=== PATIENT | male | born 1940 | race American Indian/Alaskan Native ===

== ENCOUNTER 2017-06-11 19:29 | Emergency (ER) | payer MEDICARE ==
[2017-06-11 19:44] VITALS: BP 110/69
[2017-06-11] MEDS ORDERED: DELTASONE PO ONE (22:28)
[2017-06-11] MEDS ORDERED: BENADRYL PO ONE (22:28)
[2017-06-11] MEDS ORDERED: PEPCID PO ONE (22:28)
--- NOTE | 2017-06-11 22:51 | Emergency Department Report ---
ED Rash HPI - HPI Chief Complaint: Skin Rash Stated Complaint: LT EYE SWELLING/ITCHING Time Seen by Provider: 06/11/17 22:26 Duration: 2 Days Location: Lower Extremities Suspected Cause: Medication (atrovastatin ) Rash Symptoms: Yes Itching, No Facial Swelling, No Tongue/Oral Swelling, No Breathing Difficulties, No Choking Sensation, No Wheezing/Dyspnea, No Peeling, No Blistering, No Fever, No Lightheaded, No Malaise, No Myalgias Severity: moderate ED Review of Systems ROS: Stated complaint: LT EYE SWELLING/ITCHING Other details as noted in HPI Constitutional: denies: chills, fever Eyes: denies: eye pain, eye discharge, vision change ENT: denies: ear pain, throat pain Respiratory: denies: cough, shortness of breath, wheezing Cardiovascular: denies: chest pain, palpitations Endocrine: no symptoms reported Gastrointestinal: denies: abdominal pain, nausea, diarrhea Genitourinary: denies: urgency, dysuria Musculoskeletal: denies: back pain, joint swelling, arthralgia Skin: rash, other (hives bilat le back ). denies: lesions Neurological: denies: headache, weakness, paresthesias Psychiatric: denies: anxiety, depression Hematological/Lymphatic: denies: easy bleeding, easy bruising ED Past Medical Hx - Past Medical History Additional medical history: elevated cholesterol - Surgical History Additional Surgical History: left knee - Social History Smoking Status: Never Smoker Substance Use Type: None - Medications Home Medications: Home Medications Medication Instructions Recorded Confirmed Last Taken Type EPINEPHrine [Epipen 2-Nick] 0.3 mg IJ PRN #1 auto.injct 06/11/17 Unknown Rx Famotidine [Pepcid] 20 mg PO BID #14 tablet 06/11/17 Unknown Rx diphenhydrAMINE [Benadryl CAP] 25 mg PO Q8HR PRN #30 capsule 06/11/17 Unknown Rx predniSONE [Deltasone] 40 mg PO QDAY #10 tab 06/11/17 Unknown Rx Rash Exam - Exam General: Vital signs noted. No distress. Alert and acting appropriately. HEENT: No Periorbital Edema, No Conjuctival Injection, No Chemosis, No Perioral Edema, No Tongue Edema, No Uvular Edema, No Compromised Airway, No Drooling Lungs: Yes Good Air Exchange, No Wheezes, No Ronchi, No Stridor, No Cough, No Labored Respirations, No Retractions Heart: Yes Regular, No Murmur Skin: Yes Urticarial Rash, Yes Erythema, No Maculopapular Rash, No Morbilliform rash, No Bulla(e), No Excoriations, No Weeping, No Tenderness, No Edema, No Encrustations ED Course Vital Signs 06/11/17 06/11/17 19:39 19:56 Temperature 97.9 F 97.9 F Pulse Rate 83 82 Respiratory 18 18 Rate Blood Pressure 110/69 110/69 O2 Sat by Pulse 95 95 Oximetry ED Medical Decision Making - Medical Decision Making pt presents for allergic versus contact dermatitis with mild erythema pt states he started atorvastin 2 days ago rx by Dr. Martinez and start itching swelling and hives yesterday now itching to bilat le and trunk there is no wheezing no sob no stridor, no cp no plan: prednisone, pepcid, benadryl dc atorvastin and follow up with Dr. Eid tomorrow pt verbalized agreement and understanding same pt given epipen instructions and symptoms to returnt to ed, pt is currently a/o x 3 ambulatory gait steady lungs clear pt with nad a this time, all vital signs are stable Critical care attestation.: If time is entered above; I have spent that time in minutes in the direct care of this critically ill patient, excluding procedure time. ED Disposition Clinical Impression: Allergic reaction Qualifiers: Encounter type: initial encounter Qualified Code(s): T78.40XA - Allergy, unspecified, initial encounter Disposition: TO HOME OR SELFCARE Is pt being admited?: No Does the pt Need Aspirin: No Condition: Good Instructions: Urticaria (ED), Allergies (ED), Epinephrine (Injection) Prescriptions: diphenhydrAMINE [Benadryl CAP] 25 mg PO Q8HR PRN #30 capsule PRN Reason: Itching EPINEPHrine [Epipen 2-Nick] 0.3 mg IJ PRN #1 auto.injct Famotidine [Pepcid] 20 mg PO BID #14 tablet predniSONE [Deltasone] 40 mg PO QDAY #10 tab Referrals: EMEKA EID MD [Referring] - 3-5 Days CATHY GUNDERSON MD [Primary Care Provider] - 3-5 Days Forms: Work/School Release Form(ED)
== END 2017-06-11 23:05 | disposition home or self-care (01) ==
LOC: ED 19:29
DX: T78.40XA Allergy, unspecified, initial encounter (principal); X58.XXXA Exposure to other specified factors, initial encounter; E78.00 Pure hypercholesterolemia, unspecified
CPT/HCPCS: 99282; J7512